=== PATIENT | male | born 1960 | race Two or more races ===

== ENCOUNTER 2020-09-23 13:45 | Emergency (ER) | payer SELFPAY ==
[~2020-09-23] VITALS: Ht 167.6 cm; Wt 77.6 kg
[2020-09-23 13:47] VITALS: BP 126/86
[2020-09-23] MEDS ORDERED: TETANUS-DIPTH-ACEL PERTUSSIS 0.5ML SYR Tdap IM ONE (14:00)
== END 2020-09-23 15:03 | disposition home or self-care (01) ==
LOC: ER 13:45
DX: S01.01XA Laceration without foreign body of scalp, initial encounter (principal); W18.00XA Striking against unspecified object with subsequent fall, initial encounter; Y93.89 Activity, other specified; Y92.89 Other specified places as the place of occurrence of the external cause; Y99.8 Other external cause status
CPT/HCPCS: 12002; 70450; 72125; 73030; 73070; 90471; 90715